=== PATIENT | female | born 1975 | race Hispanic/Latino ===

== ENCOUNTER 2017-08-16 22:27 | Emergency (ER) | payer SELFPAY ==
[2017-08-16] MEDS ORDERED: FAMOTIDINE 20MG TAB 20 MG TAB ONE (23:22)
[2017-08-16] MEDS ORDERED: DIPHENHYDRAMINE HCL 25 MG CAPSULE ONE (23:22)
[2017-08-16] MEDS ORDERED: PREDNISONE 20 MG TABLET ONE (23:22)
== END 2017-08-16 23:49 | disposition home or self-care (01) ==
LOC: EDH 22:27
DX: T78.49XA Other allergy, initial encounter (principal); T78.3XXA Angioneurotic edema, initial encounter; X58.XXXA Exposure to other specified factors, initial encounter
CPT/HCPCS: 99284; Q0163

== ENCOUNTER 2017-09-23 07:22 | Emergency (ER) | payer SELFPAY ==
[2017-09-23 07:57] LABS: BASOPHILS % (AUTO) 0.7 % (0.0-5.0); EOSINOPHILS % (AUTO) 1.3 % (0.0-8.0); LYMPHOCYTES % (AUTO) 27.4 % (21.0-51.0); MEAN CORPUSCULAR HEMOGLOBIN 20.8 pg (27.0-33.0); MEAN CORPUSCULAR HGB CONC 30.8 g/dL (32.0-36.0); MEAN CORPUSCULAR VOLUME 67.5 fL (79-99); MONOCYTES % (AUTO) 4.2 % (3.0-13.0); NEUTROPHILS % (AUTO) 66.4 % (40.0-77.0); PLATELET COUNT (AUTO) 350 K/uL (130-400); RED BLOOD CELL COUNT(AUTO) 2.98 MIL/uL (4.00-5.50); RED CELL DISTRIBUTION WIDTH 35.9 % (11.0-15.5); WHITE BLOOD COUNT (AUTO) 10.2 K/uL (4.8-10.8)
[2017-09-23 08:01] LABS: CREATININE 0.8 mg/dL (0.5-1.5); POTASSIUM 3.5 mmol/L (3.5-5.1)
[2017-09-23 08:13] LABS: HEMATOCRIT 20.1 % (36-48)
== END 2017-09-23 15:21 | disposition home or self-care (01) ==
LOC: EDH 07:22
DX: N93.9 Abnormal uterine and vaginal bleeding, unspecified (principal); D64.9 Anemia, unspecified; Z79.899 Other long term (current) drug therapy
CPT/HCPCS: 36415; 80048; 84703; 85025; 86850; 86900; 86901; 86922; 93005; 99285; P9016 ×2

== ENCOUNTER 2020-01-07 12:49 | Emergency (ER) | payer OTHER | END 2020-01-07 13:05 | disposition home or self-care (01) | LOC: EDH 12:49 | DX: S40.021A Contusion of right upper arm, initial encounter (principal); Z90.49 Acquired absence of other specified parts of digestive tract; Z90.710 Acquired absence of both cervix and uterus; X58.XXXA Exposure to other specified factors, initial encounter; Y93.89 Activity, other specified; Y92.89 Other specified places as the place of occurrence of the external cause; Y99.8 Other external cause status | CPT/HCPCS: 99281 ==

== ENCOUNTER 2022-10-08 16:29 | Emergency (ER) | payer OTHER ==
[~2022-10-08] VITALS: Ht 157.5 cm; Wt 108.0 kg
[2022-10-08 17:23] VITALS: BP 127/70
[2022-10-08 17:47] LABS: BASOPHILS % (AUTO) 0.4 % (0.0-5.0); EOSINOPHILS % (AUTO) 1.8 % (0.0-8.0); LYMPHOCYTES % (AUTO) 44.1 % (21.0-51.0); MEAN CORPUSCULAR HEMOGLOBIN 26.6 pg (27.0-33.0); MEAN CORPUSCULAR HGB CONC 31.5 g/dL (32.0-36.0); MEAN CORPUSCULAR VOLUME 84.6 fL (79-99); MONOCYTES % (AUTO) 5.8 % (3.0-13.0); NEUTROPHILS % (AUTO) 47.6 % (40.0-77.0); PLATELET COUNT (AUTO) 205 K/uL (130-400); RED BLOOD CELL COUNT(AUTO) 4.73 MIL/uL (4.00-5.50); RED CELL DISTRIBUTION WIDTH 14.2 % (11.0-15.5); WHITE BLOOD COUNT (AUTO) 7.4 K/uL (4.8-10.8)
[2022-10-08 18:00] LABS: CREATININE 0.9 mg/dL (0.5-1.5); POTASSIUM 3.4 mmol/L (3.5-5.1)
[2022-10-08 18:06] LABS: B-TYPE NATRIURETIC PEPTIDE 10 pg/mL (0-100)
[2022-10-08 18:11] LABS: ALBUMIN 3.5 g/dL (3.5-5.0); TOTAL PROTEIN, SERUM 7.2 g/dL (6.0-8.3)
[2022-10-08] MEDS ORDERED: FURO-152 PO (18:43)
== END 2022-10-08 18:52 | disposition home or self-care (01) ==
LOC: EDH 16:29
DX: R60.9 Edema, unspecified (principal); R06.00 Dyspnea, unspecified; R06.02 Shortness of breath; R00.2 Palpitations; M79.89 Other specified soft tissue disorders
CPT/HCPCS: 36415; 71045; 80053; 83880; 84484; 85025; 85378; 93005

== ENCOUNTER 2023-08-20 12:45 | Emergency (ER) | payer BC, OTHER ==
[~2023-08-20] VITALS: Ht 157.5 cm; Wt 105.7 kg
[~2023-08-20 12:45] MED LIST: FURO-152 PO
[2023-08-20 13:29] LABS: BASOPHILS # (AUTO) 0.02 K/uL (0.00-0.20); BASOPHILS % (AUTO) 0.2 % (0.0-5.0); EOSINOPHILS # (AUTO) 0.19 K/uL (0.00-0.70); EOSINOPHILS % (AUTO) 2.2 % (0.0-8.0); HEMATOCRIT 43.8 % (36-48); IMMATURE GRANULOCYTE ABSOLUTE 0.03 K/uL (0-1); LYMPHOCYTES # (AUTO) 3.1 K/uL (1.0-4.8); LYMPHOCYTES % (AUTO) 35.9 % (21.0-51.0); MEAN CORPUSCULAR HEMOGLOBIN 26.8 pg (27.0-33.0); MEAN CORPUSCULAR HGB CONC 32.9 g/dL (32.0-36.0); MEAN CORPUSCULAR VOLUME 81.4 fL (79-99); MONOCYTES # (AUTO) 0.3 K/uL (0.1-1.0); MONOCYTES % (AUTO) 3.6 % (3.0-13.0); NEUTROPHILS % (AUTO) 57.8 % (40.0-77.0); PLATELET COUNT (AUTO) 252 K/uL (130-400); RED BLOOD CELL COUNT(AUTO) 5.38 MIL/uL (4.00-5.50); RED CELL DISTRIBUTION WIDTH 14.1 % (11.0-15.5); WHITE BLOOD COUNT (AUTO) 8.7 K/uL (4.8-10.8)
[2023-08-20] MEDS: LACTATED RINGERS 1000ML 1,000 ML IV ONE (13:31)
[2023-08-20] MEDS: PROCHLORPERAZINE 10MG/2ML INJ IV ONE (13:32)
[2023-08-20] MEDS: DiphenhydrAMINE HCL 50 MG/ML VIAL IV ONE (13:32)
[2023-08-20 13:44] LABS: POTASSIUM 5.7 mmol/L (3.5-5.1)
[2023-08-20 13:48] LABS: ALBUMIN 2.8 g/dL (3.5-5.0); BILIRUBIN,TOTAL 0.5 mg/dL (0.2-1.0)
[2023-08-20 13:50] LABS: B-TYPE NATRIURETIC PEPTIDE 9 pg/mL (0-100)
[2023-08-20 14:27] LABS: MAGNESIUM 1.7 mg/dL (1.80-2.40); TOTAL PROTEIN, SERUM 6.1 g/dL (6.0-8.3)
[2023-08-20 15:33] VITALS: BP 102/67; PULSE 80; RESP 17; O2SAT 96
[2023-08-20 15:45] LABS: APPEARANCE,URINE CLOUDY (CLEAR); BILIRUBIN,URINE NEGATIVE (NEGATIVE); COLOR,URINE YELLOW (YELLOW); GLUCOSE, URINE (UA) NEGATIVE (NEGATIVE); KETONES,URINE NEGATIVE (NEGATIVE); LEUKOCYTE ESTERASE ,URINE 250 Leu/uL (NEGATIVE); NITRATE,URINE NEGATIVE (NEGATIVE); PROTEIN,URINE 10 mg/dL (NEGATIVE); UROBILINOGEN,URINE 0.2 mg/dL (0.2-1.0)
[2023-08-20 15:47] LABS: ADD UA MICROSCOPIC YES
[2023-08-20 15:50] LABS: BACTERIA,URINE RARE /HPF (None Seen); MUCUS,URINE FEW LPF (None Seen); RBC,URINE 0-1 /HPF (0-1); SQUAMOUS EPITHELIAL CELL,UR MOD /HPF (0-2)
[2023-08-20] MEDS ORDERED: SODI10PO2 PO (16:43)
== END 2023-08-20 16:48 | disposition home or self-care (01) ==
LOC: EDH 12:45
DX: E87.5 Hyperkalemia (principal); G44.209 Tension-type headache, unspecified, not intractable; E11.9 Type 2 diabetes mellitus without complications; Z90.710 Acquired absence of both cervix and uterus
CPT/HCPCS: 99284; 96374; 96361; 96375; 82550; 83735; 84484; 80053; 83880; 85025; 87088; 81001; 36415; 93005; J7120; J1200; J0780